=== PATIENT | female | born 1955 | race Caucasian/White ===

== ENCOUNTER 2016-11-17 11:35 | Emergency (ER) | payer OTHER ==
[~2016-11-17] VITALS: Ht 157.5 cm; Wt 81.4 kg
[~2016-11-17 11:35] MED LIST: HYDR-3965 PO
[2016-11-17] MEDS ORDERED: TRAM50TA4 PO (12:19)
[2016-11-17 12:33] LABS: APPEARANCE,URINE CLEAR (CLEAR); GLUCOSE, URINE (UA) NEGATIVE (NEGATIVE); KETONES,URINE NEGATIVE (NEGATIVE); LEUKOCYTE ESTERASE ,URINE NEGATIVE (NEGATIVE); OCCULT BLOOD,URINE NEGATIVE (NEGATIVE); PROTEIN,URINE NEGATIVE (NEGATIVE)
[2016-11-17 12:36] LABS: ADD UA MICROSCOPIC NO
[2016-11-17] MEDS ORDERED: MORPHINE SULFATE 2 MG/ML SYRINGE IVP ONE (13:15)
[2016-11-17] MEDS ORDERED: ONDANSETRON HCL 4 MG/2 ML VIAL IVP ONE (13:15)
[2016-11-17] MEDS ORDERED: MetroNIDAZOLE 250 MG TABLET PO ONE (14:15)
[2016-11-17] MEDS ORDERED: CIPROFLOXACIN HCL 250 MG TABLET PO ONE (14:15)
[2016-11-17 15:01] VITALS: BP 118/74
== END 2016-11-17 15:06 | disposition home or self-care (01) ==
LOC: EMS 11:36
DX: K57.92 Diverticulitis of intestine, part unspecified, without perforation or abscess without bleeding (principal); K21.9 Gastro-esophageal reflux disease without esophagitis
CPT/HCPCS: 76856; 81003; 96374; 96375; 99285; 99406; J2270; J2405